=== PATIENT | male | born 1990 | race African-American/Black ===

== ENCOUNTER 2020-06-01 09:38 | Emergency (ER) | payer MEDICAID ==
[~2020-06-01] VITALS: Ht 185.4 cm; Wt 68.0 kg
[~2020-06-01 09:38] MED LIST: NAPROSYN500 MG PO; NO
[2020-06-01 11:15] LABS: HEMATOCRIT 43.6 % (39.0-50.0); HEMOGLOBIN 14.5 g/dl (14.0-18.0); IMMATURE GRANULOCYTES 0.2 % (0.0-5.0); MEAN CORPUSCULAR HGB 30.6 pG CALC (26.0-32.0); MEAN CORPUSCULAR HGB CONC 33.3 g/dL CAL (32.0-36.0); NEUT# 2.46 thou/uL (1.82-7.42); RED BLOOD COUNT 4.74 mill/uL (4.70-6.10); RED CELL DISTRI WIDTH 12.7 % (11.5-15.5)
[2020-06-01 11:31] LABS: ANION GAP 11 (6-22 (CALC)); BUN 13 mg/dL (9-20); BUN/CREATININE RATIO 16 (12-20 (CALC)); CARBON DIOXIDE 28 mmol/l (22-30); CHLORIDE 101 mmol/l (95-108); CREATININE 0.8 mg/dL (0.7-1.3); GFR > 60 ML/MIN (>=60 (CALC)); GFR FOR AFR.AMER. > 60 ML/MIN (>=60 (CALC)); SODIUM 136 mmol/l (137-146)
[2020-06-01 13:16] VITALS: BP 117/63
== END 2020-06-01 13:16 | disposition home or self-care (01) ==
LOC: ED 09:38
PROVIDERS: Family Medicine
DX: M25.512 Pain in left shoulder (principal); F17.290 Nicotine dependence, other tobacco product, uncomplicated

== ENCOUNTER 2020-06-16 10:57 | Emergency (ER) | payer SELFPAY ==
[~2020-06-16] VITALS: Ht 185.4 cm; Wt 68.0 kg
[2020-06-16 12:24] VITALS: BP 129/78
== END 2020-06-16 12:24 | disposition home or self-care (01) | DRG 605 ==
LOC: ED 10:57
PROC: 0HQFXZZ Repair Right Hand Skin, External Approach (ICD-10-PCS; principal; 2020-06-16)
DX: S61.011A Laceration without foreign body of right thumb without damage to nail, initial encounter (principal); F17.200 Nicotine dependence, unspecified, uncomplicated; W26.9XXA Contact with unspecified sharp object(s), initial encounter; Y93.89 Activity, other specified; Y92.008 Other place in unspecified non-institutional (private) residence as the place of occurrence of the external cause

== ENCOUNTER 2021-03-28 02:46 | Emergency (ER) | payer SELFPAY ==
[~2021-03-28] VITALS: Ht 185.4 cm; Wt 68.0 kg
[2021-03-28 03:25] LABS: HEMOGLOBIN 15.1 g/dl (14.0-18.0); IMMATURE GRANULOCYTES 0.2 % (0.0-5.0); MEAN CELL VOLUME 94.7 fL CALC (80.0-100.0); MEAN CORPUSCULAR HGB 31.1 pG CALC (26.0-32.0); MEAN CORPUSCULAR HGB CONC 32.8 g/dL CAL (32.0-36.0); NEUT# 2.75 thou/uL (1.82-7.42); RED BLOOD COUNT 4.86 mill/uL (4.70-6.10); RED CELL DISTRI WIDTH 12.5 % (11.5-15.5)
[2021-03-28 03:36] LABS: ALBUMIN 3.8 g/dL (3.2-5.0); ALKALINE PHOSPHATASE 64 u/l (38-126); AMYLASE 68 u/l (30-110); ANION GAP 8 (6-22 (CALC)); BILIRUBIN, TOTAL 0.4 mg/dL (0.0-1.4); BUN 16 mg/dL (9-20); BUN/CREATININE RATIO 15 (12-20 (CALC)); CHLORIDE 102 mmol/l (95-108); GFR > 60 ML/MIN (>=60 (CALC)); GFR FOR AFR.AMER. > 60 ML/MIN (>=60 (CALC)); LIPASE 70 u/l (23-300); POTASSIUM 4.3 mmol/l (3.5-5.1); SGOT/AST 23 u/l (17-59); SODIUM 140 mmol/l (137-146); TOTAL PROTEIN 6.7 g/dL (6.3-8.2)
[2021-03-28 03:37] LABS: CARBON DIOXIDE 34 mmol/l (22-30)
[2021-03-28 04:40] LABS: URINE BILIRUBIN - DIPSTICK NEGATIVE (NEGATIVE); URINE BLOOD DIPSTICK NEGATIVE (NEGATIVE); URINE COLOR YELLOW; URINE GLUCOSE - DIPSTICK NEGATIVE (NEGATIVE); URINE KETONE NEGATIVE (NEGATIVE); URINE LEUK ESTERASE NEGATIVE (NEGATIVE); URINE PROTEIN - DIPSTICK NEGATIVE (NEG-TRACE); URINE SPECIFIC GRAVITY 1.025
[2021-03-28 04:46] LABS: URINE NITRITE - DIPSTICK NEGATIVE (Negative)
[2021-03-28] MEDS ORDERED: CITRATE OF MEGNESIA PO (05:18)
[2021-03-28] MEDS ORDERED: MIRALAX17 GM PO (05:18)
[2021-03-28 05:21] VITALS: BP 125/62
== END 2021-03-28 05:28 | disposition home or self-care (01) | DRG 392 ==
LOC: ED 02:46
PROVIDERS: Family Medicine
DX: R10.32 Left lower quadrant pain (principal); F17.200 Nicotine dependence, unspecified, uncomplicated
CPT/HCPCS: Q9967

== ENCOUNTER 2022-05-22 06:01 | Emergency (ER) | payer OTHER ==
[~2022-05-22] VITALS: Ht 185.4 cm; Wt 68.0 kg
[~2022-05-22 06:01] MED LIST changes: +CITRATE OF MEGNESIA PO; +MIRALAX17 GM PO
[2022-05-22 06:06] VITALS: BP 130/70
[2022-05-22 06:15] VITALS: BP 114/84
[2022-05-22] MEDS ORDERED: CYCLOBENZAPRINE10 MG PO (07:21)
[2022-05-22] MEDS ORDERED: NAPROXEN500 MG PO (07:21)
[2022-05-22 07:29] VITALS: BP 114/84
== END 2022-05-22 07:30 | disposition home or self-care (01) | DRG 552 ==
LOC: ED 06:01
DX: S33.5XXA Sprain of ligaments of lumbar spine, initial encounter (principal); S13.9XXA Sprain of joints and ligaments of unspecified parts of neck, initial encounter; M54.9 Dorsalgia, unspecified; M54.2 Cervicalgia; V43.52XA Car driver injured in collision with other type car in traffic accident, initial encounter

== ENCOUNTER 2022-05-26 15:52 | Emergency (ER) | payer OTHER ==
[~2022-05-26] VITALS: Ht 188 cm; Wt 66.2 kg
[~2022-05-26 15:52] MED LIST changes: +CYCLOBENZAPRINE10 MG PO; +NAPROXEN500 MG PO
[2022-05-26] MEDS ORDERED: PREDNISONE10 MG PO (19:55)
[2022-05-26 20:31] VITALS: BP 112/73
== END 2022-05-26 20:33 | disposition home or self-care (01) | DRG 552 ==
LOC: ED 15:52
DX: S13.9XXA Sprain of joints and ligaments of unspecified parts of neck, initial encounter (principal); S33.5XXA Sprain of ligaments of lumbar spine, initial encounter; V49.40XA Driver injured in collision with unspecified motor vehicles in traffic accident, initial encounter